=== PATIENT | female | born 1960 | race Caucasian/White ===

== ENCOUNTER → 2025-03-07 | Outpatient (CLI) | payer BC, SELFPAY ==
--- NOTE | 2025-03-07 09:09 | BI_ITS ---
EXAM: DIAG MAMM W/CAD, UNILAT 03/07/2025 CLINICAL HISTORY: F, Age 64 y/o , INCONCLUSIVE MAMM TECHNIQUE: Compression spot views of the right breast in the mediolateral oblique and craniocaudad projections were obtained. 90 degree lateral was obtained as well. Computer aided detection. COMPARISON: Prior exam(s) dated outside examination dated February 14, 2025.. FINDINGS: TISSUE DENSITY: The breast tissue is heterogenously dense, which may obscure small masses. Bilateral Breast Mammographic Findings: No significant masses, calcifications or other abnormalities are identified. BI/DIAG MAMM W/CAD, UNILAT IMPRESSION: OVERALL FINAL ASSESSMENT: BIRADS 0 Incomplete: Need additional imaging evaluati on and/or prior mammograms for comparison.. RECOMMENDATION: Targeted sonographic correlation recommended. A letter with findings and recommendations will be mailed to the patient. Reading Location: [id number]
--- NOTE | 2025-03-07 09:09 | US_ITS ---
PROCEDURE: BREAST LIMITED UNILATERAL 03/07/2025 REASON FOR EXAM: INCONCLUSIVE MAMM TECHNIQUE: Targeted right breast ultrasound. COMPARISON: Prior mammogram done earlier in the day. FINDINGS: Right breast ultrasound was targeted to the inferior medial aspect of the right breast.. There is a 5 mm x 5 mm x 5 mm hypoechoic nodule with indistinct borders and increased vascularity retroareolar region of the breast. Biopsy recommended. There is also of a 6 mm x 5 mm x 6 mm cystic nodule with the echogenic tissue along its inferior border.. US/Breast Limited Unilateral IMPRESSION: 5 mm x 5 mm x 5 mm indistinct hypoechoic nodule with increased vascularity in t he retroareolar region of the breast. Biopsy recommended. Follow-up code: BI-RADS category 4. Reading Location: [id number]
== END | disposition home or self-care (01) ==
PROVIDERS: PCP Family Medicine; Referring Provider Physician Assistant; Visit Provider Physician Assistant
DX: R92.2 Inconclusive mammogram (principal)
CPT/HCPCS: 76642; 77065